=== PATIENT | female | born 1985 | race African-American/Black ===

== ENCOUNTER 2016-08-30 20:59 | Emergency (ER) | payer OTHER ==
[2016-08-30 21:08] VITALS: BP 120/64; PULSE 81; TEMP 99; BMI 24.3
[2016-08-31] MEDS ORDERED: traMADol HCL 50 MG TABLET PO ONE (00:19)
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
[2016-08-31] MEDS ORDERED: traMADol HCL 50 MG TABLET ONE (00:23)
== END 2016-08-31 00:25 | disposition home or self-care (01) ==
LOC: FER 20:59
DX: S16.1XXA Strain of muscle, fascia and tendon at neck level, initial encounter (principal); S46.912A Strain of unspecified muscle, fascia and tendon at shoulder and upper arm level, left arm, initial encounter; V43.52XA Car driver injured in collision with other type car in traffic accident, initial encounter; Y93.89 Activity, other specified; Y92.410 Unspecified street and highway as the place of occurrence of the external cause
CPT/HCPCS: 99282-25

== ENCOUNTER 2021-04-20 14:55 | Emergency (ER) | payer OTHER ==
[2021-04-20 15:01] VITALS: BP 109/72; PULSE 104; TEMP 98.1; BMI 22.4
[2021-04-20] MEDS ORDERED: KETOROLAC TROMETHAMINE 60 MG/2 ML VIAL IM ONE (15:25)
[2021-04-20] MEDS ORDERED: KETOROLAC TROMETHAMINE 60 MG/2 ML VIAL ONE (15:27)
== END 2021-04-20 15:43 | disposition home or self-care (01) ==
LOC: JERFT 14:55
PROC: 3E0233Z Introduction of Anti-inflammatory into Muscle, Percutaneous Approach (ICD-10-PCS; principal; 2021-04-20)
DX: S39.012A Strain of muscle, fascia and tendon of lower back, initial encounter (principal); Y04.8XXA Assault by other bodily force, initial encounter; V43.52XA Car driver injured in collision with other type car in traffic accident, initial encounter
CPT/HCPCS: 99284-25